=== PATIENT | male | born 1955 | race African-American/Black ===

== ENCOUNTER 2018-05-10 13:31 | Inpatient (IN) ==
[2018-05-10] MEDS ORDERED: Morphine Inj 4 MG/ML Vial IV.PUSH ONE ×2 (16:21→17:09)
[2018-05-10 16:56] LABS: Baso % (Auto) 0.5 % (0.0-2.0); Eos % (Auto) 0.2 % (0.0-4.0); Hematocrit 35.6 % (39.0-51.0); Hemoglobin 11.9 gm/dL (13.0-17.0); Lymph # (Auto) 2.3 th/mm3 (1.0-4.8); Lymph % (Auto) 23.2 % (9.0-44.0); Mean Corpuscular HGB Conc 33.3 % (32.0-36.0); Mean Corpuscular Hemoglobin 26.5 pg (27.0-34.0); Mean Corpuscular Volume 79.4 fL (80.0-100.0); Mean Platelet Volume 7.3 fL (7.0-11.0); Mono # (Auto) 0.4 th/mm3 (0.0-0.9); Mono % (Auto) 4.6 % (0.0-8.0); Neut % (Auto) 71.5 % (16.0-70.0); Platelet Count 365 th/mm3 (150-450); Red Blood Count 4.49 mil/mm3 (4.50-5.90); Red Cell Distribution Width 21.9 % (11.6-17.2); White Blood Count 9.8 th/mm3 (4.0-11.0)
--- NOTE | 2018-05-10 17:04 | ED ---
HPI General Chief Complaint: Abdominal Pain Stated Complaint: Abd/Chest Pain Complaint Time Seen by Provider: 05/10/18 15:48 Source: patient Mode of arrival: ambulatory Limitations: no limitations History of Present Illness HPI narrative: Patient is a 62-year-old male, past medical history significant for previous pancreatitis, who presents with complaint of abdominal pain that began yesterday and felt like a bloating sensation. He states that the bloating sensation was diffuse but the pain has worsened and is worse in the right upper quadrant. He is still having persistent abdominal discomfort diffusely as well. He has had some nausea but no vomiting. No constipation. No fever nor chills. He denies chest pain or shortness of breath. MD complaint: Reports abdominal pain Onset (ago): day(s) Pain Consistency: constant Location: Reports diffuse Severity: moderate Quality: Reports fullness Migration to: Reports no migration Relieving factors: nothing Exacerbating factors: movement Associated symptoms: Reports nausea Related Data Home Medications Medication Instructions Recorded Confirmed Novolog Flexpen U-100 Insulin 05/10/18 05/10/18 amlodipine 10 mg PO DAILY 05/10/18 05/10/18 cyclobenzaprine 10 mg PO DAILY 05/10/18 05/10/18 insulin glargine [Basaglar KwikPen 20 unit SUBCUT DAILY 05/10/18 05/10/18 U-100 Insulin] slezka-syudjiig-yofanoa [Creon] 1 cap PO TID 05/10/18 05/10/18 magnesium oxide 400 mg PO DAILY 05/10/18 05/10/18 metformin 500 mg PO BID 05/10/18 05/10/18 multivitamin 1 tab PO DAILY 05/10/18 05/10/18 propranolol 40 mg PO BID 05/10/18 05/10/18 sucralfate 1 g PO BID 05/10/18 05/10/18 vitamin B complex 1 tab PO DAILY 05/10/18 05/10/18 Allergies Allergy/AdvReac Type Severity Reaction Status Date / Time No Known Allergies Allergy Verified 05/10/18 15:50 Review of Systems ROS: all other systems reviewed are negative [facility] Medical History Medical History Diabetes (Acute) Hypertension (Acute) Pancreatitis (Acute) Surgical History Surgical History No history of previous surgery (Acute) Family History Family History Father HTN (hypertension) Mother HTN (hypertension) Social History Social History Substance History: No History of Abuse Second Hand Smoke Exposure: No Smoking Status: Heavy tobacco smoker Tobacco Type: Cigarettes How Often Do You Have a Drink Containing Alcohol: Never Recent Travel in [facility] within the Last 8 Weeks: No Recent Out of Country Travel within the Last 8 Weeks: No Immunization History Tetanus Immunization: Unsure Exam Narrative Exam Narrative: GENERAL: Well-appearing male in no acute distress but lying flat on the bed SKIN: Focused skin assessment warm/dry. No rashes. HEAD: Atraumatic. Normocephalic. EYES: Pupils equal and round. No scleral icterus. No injection or drainage. ENT: No nasal bleeding or discharge. Mucous membranes pink and moist. NECK: Trachea midline. No JVD. CARDIOVASCULAR: Regular rate and rhythm. No murmur appreciated. Intact and equal peripheral pulses. RESPIRATORY: No accessory muscle use. Clear to auscultation. Breath sounds equal bilaterally. GASTROINTESTINAL: Abdomen soft, tenderness present throughout but worse in the right upper quadrant. Positive Quintero sign. Hepatic and splenic margins not palpable. MUSCULOSKELETAL: No obvious deformities. No clubbing. No cyanosis. No edema. NEUROLOGICAL: Awake and alert. No obvious cranial nerve deficits. Motor grossly within normal limits. Normal speech. PSYCHIATRIC: Appropriate mood and affect; insight and judgment normal. Course Initial Documented Vital Signs Temperature 97.7 F 05/10/18 13:45 Pulse Rate 90 05/10/18 13:45 Respiratory Rate 17 05/10/18 13:45 Blood Pressure 135/78 05/10/18 13:45 Pulse Oximetry 98 05/10/18 13:45 Last Documented Vital Signs Temperature 98.7 F 05/11/18 04:00 Pulse Rate 88 05/11/18 04:00 Respiratory Rate 19 05/11/18 04:00 Blood Pressure 131/80 05/11/18 04:00 Pulse Oximetry 93 L 05/11/18 04:00 Medical Decision Making [facility] Narrative Medical decision making narrative: Patient is a 62-year-old male who presents with complaint of abdominal pain. He has tenderness diffusely but is worse in the right upper quadrant with a positive Quintero sign. Labs, ultrasound, CT pending at time of checkout. 1740 3 PM. Patient was seen by ED physician and signed out to me. Normal saline solution 125 cc an hour. Morphine IV was given to the patient. Zofran was given to the patient. Protonix 40 mg IV. Medical Screen Exam Complete: Yes Emergency Medical Condition: Yes Differential Diagnosis Differential Diagnosis: Differential diagnosis includes but is not limited to cholecystitis, volvulus, small bowel obstruction. Medical Records Medical records reviewed: Yes I reviewed the patient's medical records. Lab Data Lab results reviewed: Yes I reviewed the patient's lab results. Result diagrams: 05/10/18 16:35 05/10/18 16:35 Lab Results 05/10/18 05/10/18 05/10/18 Range/Units 16:35 16:35 17:10 WBC 9.8 (4.0-11.0) th/mm3 RBC 4.49 L (4.50-5.90) mil/mm3 Hgb 11.9 L (13.0-17.0) gm/dL Hct 35.6 L (39.0-51.0) % MCV 79.4 L (80.0-100.0) fL MCH 26.5 L (27.0-34.0) pg MCHC 33.3 (32.0-36.0) % RDW 21.9 H (11.6-17.2) % Plt Count 365 (150-450) th/mm3 MPV 7.3 (7.0-11.0) fL Neut % (Auto) 71.5 H (16.0-70.0) % Lymph % (Auto) 23.2 (9.0-44.0) % [place] % (Auto) 4.6 (0.0-8.0) % Eos % (Auto) 0.2 (0.0-4.0) % Baso % (Auto) 0.5 (0.0-2.0) % Neut # (Auto) 7.0 (1.8-7.7) th/mm3 Lymph # (Auto) 2.3 (1.0-4.8) th/mm3 [place] # (Auto) 0.4 (0.0-0.9) th/mm3 Eos # (Auto) 0.0 (0.0-0.4) th/mm3 Baso # (Auto) 0.0 (0.0-0.2) th/mm3 WBC Differential . Differential Comment Auto diff final Sodium 136 (136-145) meq/L Potassium 5.8 H (3.5-5.1) meq/L Chloride 104 (98-107) meq/L Carbon Dioxide 25.3 (21.0-32.0) meq/L Anion Gap 7 (5-15) meq/L BUN 10 (7-18) mg/dL Creatinine 0.81 (0.60-1.30) mg/dL Estimated GFR Greater than 89 (>89) mL/min Random Glucose 173 H (74-106) mg/dL Calcium 9.0 (8.5-10.1) mg/dL Magnesium 1.8 (1.5-2.5) mg/dL Total Bilirubin 0.5 (0.2-1.0) mg/dL AST 53 H (15-37) U/L ALT 37 (12-78) U/L Alkaline Phosphatase 91 (45-117) U/L Total Protein 8.3 H (6.4-8.2) g/dL Albumin 3.4 (3.4-5.0) g/dL Lipase 2786 H (73-393) U/L Urine Color Yellow (Yellw/Straw) Urine Clarity Hazy H (Clear) Urine pH 5.0 (5.0-8.5) Ur Specific [place] 1.031 (1.002-1.035) Urine Protein 100 H (Neg-Trace) mg/dL Urine Glucose (UA) Negative (Negative) mg/dL Urine Ketones Negative (Negative) mg/dL Urine Occult Blood Negative (Negative) Urine Nitrate Negative (Negative) Urine Bilirubin Negative (Negative) Urine Urobilinogen Less than 2 (Less than 2) mg/dL Ur Leukocyte Esterase Small H (Negative) Urine RBC 1 (0-3) /hpf Urine WBC 37 H (0-5) /hpf Ur Squamous Epith Cells 1 (0-5) /hpf Urine Bacteria Few H (None) /hpf Hyaline Casts 3 (0-3) /lpf Urine Mucus Few H (Occasional) /lpf Micro UA Comment Culture indicated Ur Microscopic Review Not Reportable Urine Culture Comments Culture indicated Imaging Data Attestation: I personally reviewed and interpreted this imaging study as follows : Radiologist's impression: Abdomen/Pelvis CT 05/10/18 16:21 CONCLUSION: 1. Findings most consistent with acute pancreatitis with secondary involvement of the gastric antrum. 2. 2.8 cm pseudocyst involving the pancreatic head is smaller from the prior study. 3. Changes involving the pancreas consistent with chronic pancreatitis. 4. Mildly distended thick walled gallbladder with a small amount of pericholecystic fluid. No calcified gallstones observed. This may simply be venous congestion secondary to the patient's underlying hepatic disease. I cannot completely exclude acute cholecystitis. If there is strong clinical concern for this consider ultrasound. Gallbladder Ultrasound 05/10/18 16:21 CONCLUSION: 1. Thickened edematous gallbladder wall with pericholecystic fluid but no evidence of cholelithiasis. This is most characteristic of acalculus cholecystitis. 2. No evidence of hepatic biliary tract disease. 3. Simple right renal cyst. Discharge Plan Discharge Disposition Patient Disposition: ED Admit(ED Internal Use Only) Discharge Order Discharge Orders: ED Use Only Admit Order (Routine); Ordered 05/10/18 Ordered By: Guillermo Allison Discharge Details Diagnosis: Acute acalculous cholecystitis, Acute pancreatitis, Acute UTI Physicians Team ED Provider: Bryanna Ambriz Primary Care Provider: Primary Care Taryn,Anjelica Attending Provider: Trever Koehler Other Providers: Russell Slater ED Status: Left Department Discharge Information Discharge Date/Time: 05/10/18 23:12
--- NOTE | 2018-05-10 17:16 | US ---
EXAM DATE: 05/10/2018 5:11 PM EST AGE/SEX: 62 years / Male INDICATIONS: Right upper quadrant pain. CLINICAL DATA: This is the patient's initial encounter. Patient reports that signs and symptoms have been present for 1 week and indicates a pain score of 7/10. MEDICAL/SURGICAL HISTORY: Diabetes. Hypertension. Pancreatitis. None. COMPARISON: [facility] [place], [place] ABDOMEN - COMPLETE, 06/25/2011. . MEASUREMENTS: Liver:__ 15.5 cm. Common Bile Duct:__ 7mm. FINDINGS: Liver: Normal echogenicity without focal lesion or ductal dilatation. Portal Vein: Hepatopedal flow seen in portal vein. Common Duct: No intraluminal mass or stone visualized. Gallbladder: The gallbladder wall is thickened and edematous in appearance. There is pericholecystic fluid. No discrete stones are identified. Pancreas: Not well visualized. Right Kidney: 2.2 cm cyst is identified in the midpole of the right kidney. Other: None. CONCLUSION: 1. Thickened edematous gallbladder wall with pericholecystic fluid but no evidence of cholelithiasis . This is most characteristic of acalculus cholecystitis. 2. No evidence of hepatic biliary tract disease. 3. Simple right renal cyst. Electronically signed by: Jovani Glez MD Board Certified Radiologist 05/10/2018 5:15 PM EST
[2018-05-10 17:22] LABS: Alkaline Phosphatase 91 U/L (45-117); Lipase 2786 U/L (73-393); Total Protein 8.3 g/dL (6.4-8.2)
[2018-05-10] MEDS ORDERED: Pantoprazole Inj 40 MG Vial IV.PUSH ONE (17:44)
[2018-05-10] MEDS ORDERED: Sod Chloride 0.9% Inj 1,000 ML IV.CONT SCH ×2 (17:45→19:30)
[2018-05-10 17:52] LABS: Bacteria,Urine Few /hpf; Bilirubin,Urine Negative (Negative); Clarity,Urine Hazy (Clear); Color,Urine Yellow (Yellw/Straw); Glucose,Urine (UA) Negative (Negative); Hyaline Casts,Urine 3 /lpf (0-3); Leukocyte Esterase,Urine Small (Negative); Mucus,Urine Few /lpf (Occasional); Nitrite,Urine Negative (Negative); Specific Gravity,Urine 1.031 (1.002-1.035); Squamous Epithelial Cell,Urine 1 /hpf (0-5)
[2018-05-10] MEDS ORDERED: Piperacil/Tazo 3.375 GM Premix 3.375 GM/50 ML PIGGYBACK IV.SIG ONE (17:53)
[2018-05-10 17:57] LABS: Alanine Aminotransferase 37 U/L (12-78); Albumin 3.4 g/dL (3.4-5.0); Anion Gap 7 meq/L (5-15); Blood Urea Nitrogen 10 mg/dL (7-18); Carbon Dioxide 25.3 meq/L (21.0-32.0); Chloride 104 meq/L (98-107); Glomerular Filtration Rate Greater Than 89 mL/min (>89); Glucose,Random 173 mg/dL (74-106); Magnesium 1.8 mg/dL (1.5-2.5); Sodium 136 meq/L (136-145)
[2018-05-10 17:58] LABS: Potassium 5.8 meq/L (3.5-5.1)
[2018-05-10 17:59] LABS: Aspartate Aminotransferase 53 U/L (15-37)
--- NOTE | 2018-05-10 18:49 | CT ---
EXAM DATE: 05/10/2018 6:31 PM EST AGE/SEX: 62 years / Male INDICATIONS: Lower abdominal pain and right sided abdominal pain. CLINICAL DATA: This is the patient's initial encounter. Patient reports that signs and symptoms have been present for 1 day and indicates a pain score of 10/10. MEDICAL/SURGICAL HISTORY: Diabetes. Pancreatitis. Hypertension. None. ORAL CONTRAST: No oral contrast ingested. RADIATION DOSE: 6.64 CTDI (mGy) [place] [facility] [place] 09/05/2015. . TECHNIQUE: Multiple contiguous axial images were obtained through the abdomen and pelvis following b olus infusion of 75 ml Omnipaque 350 (iohexol) nonionic water-soluble contrast as a single exam dos e. No oral contrast ingested. Using automated exposure control and adjustment of the mA and/or kV ac cording to patient size, radiation dose was kept as low as reasonably achievable to obtain optimal di agnostic quality images. DICOM format image data is available electronically for review and comparis on. FINDINGS: Lower Lungs: The visualized lower lungs are clear. Liver: The liver has a homogeneous density without space-occupying lesion. There is no dilation of th e biliary tree. 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 The gallbladder is mildly diste nded without calcified stones. The wall is thickened and there is a small amount of pericholecystic f luid.. Spleen: Homogeneous density without enlargement. Pancreas: A markedly abnormal pancreas. There is a 2.8 cm pseudocyst adjacent to the pancreatic head which is smaller from the prior examination. Scattered calcifications throughout the pancreas but mo st abundant within the pancreatic head. Diffuse dilatation of the pancreatic duct reaching a maximum diameter of 7 mm which is stable from the prior study. There is the suggestion of inflammatory change within the adjacent fat near the pancreatic head most pronounced anteriorly with secondary edema inv olving the gastric wall most pronounced within the fundal region.. Kidneys: Normal in size and shape. No evidence of mass or hydronephrosis. Adrenal Glands: Unremarkable. Aorta: Diffuse calcified atheromatous plaque without aneurysmal dilation. Bowel/Mesentery: A few scattered colonic diverticuli without acute inflammation. The bowel loops are grossly unremarkable. The cecum and sigmoid colon have a normal configuration. The appendix is jose j l by CT criteria. Abdominal Wall: Intact. Retroperitoneum: No evidence of adenopathy in the retrocrural, para-aortic, or deep pelvic regions. Bladder: Contours are smooth. Reproductive Organs: No abnormal masses or calcifications seen. Inguinal: The inguinal region is unremarkable without evidence of adenopathy. Bony Structures: Unremarkable. CONCLUSION: 1. Findings most consistent with acute pancreatitis with secondary involvement of the gastric antrum . 2. 2.8 cm pseudocyst involving the pancreatic head is smaller from the prior study. 3. Changes involving the pancreas consistent with chronic pancreatitis. 4. Mildly distended thick walled gallbladder with a small amount of pericholecystic fluid. No calcif ied gallstones observed. This may simply be venous congestion secondary to the patient's underlying h epatic disease. I cannot completely exclude acute cholecystitis. If there is strong clinical concern for this consider ultrasound. Electronically signed by: Abilio Sena MD Board Certified Radiologist 05/10/2018 6:47 PM EST
[2018-05-10] MEDS: HYDROmorphone PF Inj 0.5 MG/0.5 ML Syringe IV.PUSH PRN (21:30)
[2018-05-10] MEDS ORDERED: Sodium Polystyrene Sulfonate/Sorbitol Liq 15 GM/60 ML UDC PO ONE (23:01)
[2018-05-10] MEDS: Piperacil/Tazo 4.5 GM Premix 4.5 GM/100 ML BAG IV.SIG SCH (23:20)
[2018-05-10] MEDS: Sod Chloride 0.9% Inj 1,000 ML IV.CONT SCH (23:22)
[2018-05-11] MEDS: HYDROmorphone PF Inj 0.5 MG/0.5 ML Syringe IV.PUSH PRN ×5 (01:39→20:00)
--- NOTE | 2018-05-11 03:09 | P.HPIM ---
History of Present Illness Service: [facility] Primary Care Physician: No Primary Care Physician Chief Complaint: Abdominal pain History of Present Illness: 62-year-old male with a history of pancreatitis, high blood pressure, diabetes, GERD presented to the ED with complaints of abdominal pain that started yesterday. Patient states he felt very bloated and over the course of the day the pain became worse and radiated to his right upper quadrant. He states the pain originally was a 7/10, constant, sharp stabbing, worse with movement, with associated nausea and bloating. Upon examination patient states his abdominal pain is significantly better with the medications and fluids. He denies any chest pain, shortness of breath, fever or chills. Inpatient Certification Inpatient Certification: I certify that the inpatient services were ordered in accordance with Medicare regulations governing the order. This includes certification that hospital inpatient services are reasonable and necessary and in the case of services not specified as inpatient-only under 42 CFR 419.22(n), that they are appropriately provided as inpatient services in accordance to with the 2-midnight benchmark under 43 CFR 412.3(e) Estimated Total Length of Stay (Days): 3 Plans for Post Hospital Care: Home Review of Systems Review of Systems: all other systems reviewed are negative [facility] Medical History Medical History Diabetes (Acute) Hypertension (Acute) Pancreatitis (Acute) Surgical History Surgical History No history of previous surgery (Acute) Family History Family History Father HTN (hypertension) Mother HTN (hypertension) Social History Social History Substance History: No History of Abuse Second Hand Smoke Exposure: No Smoking Status: Heavy tobacco smoker Tobacco Type: Cigarettes How Often Do You Have a Drink Containing Alcohol: Never Recent Travel in [place] within the Last 8 Weeks: No Recent Out of Country Travel within the Last 8 Weeks: No Immunization History Tetanus Immunization: Never Vaccinated Hx Influenza Vaccine This Season: No Medications and Allergies Allergies Allergy/AdvReac Type Severity Reaction Status Date / Time No Known Allergies Allergy Verified 05/10/18 15:50 Home Medications Medication Instructions Recorded Confirmed Type Novolog Flexpen U-100 Insulin 05/10/18 05/10/18 History amlodipine 10 mg PO DAILY 05/10/18 05/10/18 History cyclobenzaprine 10 mg PO DAILY 05/10/18 05/10/18 History insulin glargine [Basaglar KwikPen 20 unit SUBCUT DAILY 05/10/18 05/10/18 History U-100 Insulin] iiwuil-hzclllwk-bcnlybr [Creon] 1 cap PO TID 05/10/18 05/10/18 History magnesium oxide 400 mg PO DAILY 05/10/18 05/10/18 History metformin 500 mg PO BID 05/10/18 05/10/18 History multivitamin 1 tab PO DAILY 05/10/18 05/10/18 History propranolol 40 mg PO BID 05/10/18 05/10/18 History sucralfate 1 g PO BID 05/10/18 05/10/18 History vitamin B complex 1 tab PO DAILY 05/10/18 05/10/18 History Active Medications: Active Medications Hydromorphone HCl (Dilaudid Pf Inj) 0.5 mg IV.PUSH Q4H PRN PRN Reason: Acute Pain Last Admin: 05/11/18 01:39 Dose: 0.5 mg Piperacillin/Tazobactam/Dextrose (Zosyn 4.5 Gm Premix) 4.5 gm in 100 mls @ 200 mls/hr IV.SIG Q6H [facility] Last Infusion: 05/11/18 00:13 Dose: Infused Sodium Chloride (Ns Inj) 1,000 mls @ 125 mls/hr IV.CONT .Q8H [facility] Last Admin: 05/10/18 23:22 Dose: 125 mls/hr Ondansetron HCl (Zofran Inj) 4 mg IV.PUSH Q6H PRN PRN Reason: NAUSEA OR VOMITING Sodium Chloride (Ns Flush) 2 ml IV.FLUSH PRN PRN PRN Reason: FLUSH AFTER USING IV ACCESS Last Admin: 05/10/18 16:49 Dose: 2 ml Sodium Chloride (Ns Flush) 2 ml IV.FLUSH BID [facility] Last Admin: 05/10/18 22:31 Dose: Not Given Sodium Chloride (Ns Flush) 2 ml IV.FLUSH PRN PRN PRN Reason: FLUSH AFTER USING IV ACCESS Physical Exam Vital signs: Last Vital Signs Temp 96.4 F L 05/11/18 00:00 Pulse 77 05/11/18 00:00 Resp 18 05/11/18 00:00 BP 128/75 05/11/18 00:00 Pulse Ox 95 05/11/18 00:00 Intake & Output 05/08/18 05/09/18 05/10/18 05/11/18 06:59 06:59 06:59 06:59 Intake Total 200 / 200 Balance 200 / 200 Weight 56.699 kg Narrative: GENERAL: Well-nourished patient in no acute distress, denies pain SKIN: Warm and dry. No open lesions or abrasions EYES: No scleral icterus. No injection or drainage. NECK: Supple, trachea midline. No JVD or lymphadenopathy. CARDIOVASCULAR: Regular rate and rhythm without murmurs, gallops, or rubs. RESPIRATORY: Breath sounds equal bilaterally. No accessory muscle use. GASTROINTESTINAL: Abdomen soft, mild RUQ tenderness, nondistended. MUSCULOSKELETAL: No cyanosis, or edema. Results Labs CBC & Chem 7: 05/10/18 16:35 05/10/18 16:35 Imaging Impressions Abdomen/Pelvis CT 05/10/18 16:21 CONCLUSION: 1. Findings most consistent with acute pancreatitis with secondary involvement of the gastric antrum. 2. 2.8 cm pseudocyst involving the pancreatic head is smaller from the prior study. 3. Changes involving the pancreas consistent with chronic pancreatitis. 4. Mildly distended thick walled gallbladder with a small amount of pericholecystic fluid. No calcified gallstones observed. This may simply be venous congestion secondary to the patient's underlying hepatic disease. I cannot completely exclude acute cholecystitis. If there is strong clinical concern for this consider ultrasound. Gallbladder Ultrasound 05/10/18 16:21 CONCLUSION: 1. Thickened edematous gallbladder wall with pericholecystic fluid but no evidence of cholelithiasis. This is most characteristic of acalculus cholecystitis. 2. No evidence of hepatic biliary tract disease. 3. Simple right renal cyst. Caprini VTE Risk Assessment Caprini VTE Risk Assessment: Moderate/High Risk (score >= 2) Caprini Risk Assessment Model: Point Value = 1 Point Value = 2 Point Value = 3 Point Value = 5 Age 41-60 Minor surgery BMI > 25 kg/m2 Swollen legs Varicose veins or History of unexplained or recurrent spontaneous Oral contraceptives or hormone replacement Sepsis (< 1 month) Serious lung disease, including pneumonia (< 1 month) Abnormal pulmonary function Acute myocardial infarction Congestive heart failure (< 1 month) History of inflammatory bowel disease Medical patient at bed rest Age 61-74 Arthroscopic surgery Major open surgery (> 45 min) Laparoscopic surgery (> 45 min) Malignancy Confined to bed (> 72 hours) Immobilizing plaster cast Central venous access Age >= 75 History of VTE Family history of VTE Factor V Leiden Prothrombin [id number] Lupus anticoagulant Anticardiolipin antibodies Elevated serum homocysteine Heparin-induced thrombocytopenia Other congenital or acquired thrombophilia Stroke (< 1 month) Elective arthroplasty Hip, pelvis, or leg fracture Acute spinal cord injury (< 1 month) Prophylaxis Regimen: Total Risk Factor Score Risk Level Prophylaxis Regimen 0-1 Low Early ambulation 2 Moderate Order ONE of the following: *Sequential Compression Device (SCD) *Heparin 5000 units SQ BID 3-4 Higher Order ONE of the following medications: *Heparin 5000 units SQ TID *Enoxaparin/Lovenox 40 mg SQ daily (WT < 150 kg, CrCl > 30 mL/min) *Enoxaparin/Lovenox 30 mg SQ daily (WT < 150 kg, CrCl > 10-29 mL/min) *Enoxaparin/Lovenox 30 mg SQ BID (WT < 150 kg, CrCl > 30 mL/min) AND/OR *Sequential Compression Device (SCD) 5 or more Highest Order ONE of the following medications: *Heparin 5000 units SQ TID (Preferred with Epidurals) *Enoxaparin/Lovenox 40 mg SQ daily (WT < 150 kg, CrCl > 30 mL/min) *Enoxaparin/Lovenox 30 mg SQ daily (WT < 150 kg, CrCl > 10-29 mL/min) *Enoxaparin/Lovenox 30 mg SQ BID (WT < 150 kg, CrCl > 30 mL/min) AND *Sequential Compression Device (SCD) Assessment and Plan Plan 62-year-old male with a history of pancreatitis, high blood pressure, diabetes, GERD presented to the ED with complaints of abdominal pain that started yesterday. Pancreatitis, lipase [address] shows acute pancreatitis with a 2.8 cm pseudocyst involving the pancreatic head -IVF, npo -MRCP ordered -We will consult GI if needed Cholecystitis Gallbladder ultrasound shows a thickened edematous gallbladder with darby- cholecystic fluid -Consult general surgery for recommendations -N.p.o. -Pain management with IV Dilaudid -IV antibiotics Zosyn UTI Abnormal UA shows small leukocyte esterase with elevated WBC, + protein -Culture indicated -Continue IV antibiotics as above Hypertension, chronic -Resume home medication, monitor vitals Diabetes, chronic -Accu-Cheks with sliding scale insulin DVT prophylaxis: SCDs H&P: Quality VTE Deep Vein Thrombosis/Pulmonary Embolism Present on Admission: No
[2018-05-11] MEDS: Piperacil/Tazo 4.5 GM Premix 4.5 GM/100 ML BAG IV.SIG SCH ×3 (04:23→18:42)
[2018-05-11] MEDS: Sod Chloride 0.9% Inj 1,000 ML IV.CONT SCH ×4 (05:40→22:04)
[2018-05-11 07:21] LABS: Baso % (Auto) 0.7 % (0.0-2.0); Eos # (Auto) 0.1 th/mm3 (0.0-0.4); Eos % (Auto) 1.6 % (0.0-4.0); Hematocrit 29.2 % (39.0-51.0); Hemoglobin 9.7 gm/dL (13.0-17.0); Lymph # (Auto) 1.3 th/mm3 (1.0-4.8); Mean Corpuscular HGB Conc 33.2 % (32.0-36.0); Mean Corpuscular Hemoglobin 26.1 pg (27.0-34.0); Mean Corpuscular Volume 78.6 fL (80.0-100.0); Mean Platelet Volume 6.7 fL (7.0-11.0); Mono # (Auto) 0.6 th/mm3 (0.0-0.9); Mono % (Auto) 8.7 % (0.0-8.0); Neut # (Auto) 4.5 th/mm3 (1.8-7.7); Platelet Count 246 th/mm3 (150-450); Red Blood Count 3.72 mil/mm3 (4.50-5.90); Red Cell Distribution Width 21.3 % (11.6-17.2); White Blood Count 6.6 th/mm3 (4.0-11.0)
[2018-05-11 08:00] LABS: Alanine Aminotransferase 21 U/L (12-78); Albumin 2.6 g/dL (3.4-5.0); Alkaline Phosphatase 76 U/L (45-117); Anion Gap 10 meq/L (5-15); Aspartate Aminotransferase 10 U/L (15-37); Blood Urea Nitrogen 6 mg/dL (7-18); Calcium 8.2 mg/dL (8.5-10.1); Carbon Dioxide 23.4 meq/L (21.0-32.0); Chloride 108 meq/L (98-107); Glomerular Filtration Rate Greater Than 89 mL/min (>89); Glucose,Random 111 mg/dL (74-106); Lipase 1578 U/L (73-393); Potassium 3.2 meq/L (3.5-5.1); Sodium 141 meq/L (136-145); Total Protein 6.4 g/dL (6.4-8.2)
[2018-05-11] MEDS ORDERED: Gadobutrol PF 7.5 MMOL/7.5 ML Vial (for RAD) IV.SIG ONE (10:00)
--- NOTE | 2018-05-11 10:01 | MR ---
EXAM DATE: 05/11/2018 9:44 AM EST AGE/SEX: 62 years / Male INDICATIONS: Pancreatitis. CLINICAL DATA: This is the patient's initial encounter. Patient reports that signs and symptoms have been present for 4 - 6 days and indicates a pain score of 3/10. MEDICAL/SURGICAL HISTORY: Hypertension. Diabetes mellitus type II. None. COMPARISON: No prior exams available for comparison. TECHNIQUE: Multisequence, multiplanar MRI examination was performed without contrast and after the in travenous administration of 6 ml Gadavist (gadobutrol) contrast as a single exam dose. FINDINGS: Gallbladder is prominent without gallstones. There is minimal fluid around the gallbladder with gallb ladder wall thickening. Common duct is normal in size there is edema around the pancreas with dilatation of the pancreatic du ct with beading and irregularity suggesting previous bouts of pancreatitis. There is pseudocyst with debris in the head of the pancreas. The pseudocyst does encroach minimal degree on the distal common duct. Moderate induration is present around the head of the pancreas. This induration extends into th e antrum of the stomach with marked thickening of the gastric antrum. There is no intrahepatic biliary duct dilatation. Trace ascites is evident. Small bilateral renal cysts are evident. CONCLUSION: 1. Findings consistent with acute pancreatitis with induration around the head of the pancreas invol ving pancreas and antrum. 4 cm pseudocyst is present has the pancreas. 2. Distended gallbladder with gallbladder wall thickening. No definite stones. 3. Normal common duct 4. No intrahepatic biliary duct dilatation. Electronically signed by: Trever Bridges MD Board Certified Radiologist 05/11/2018 10:00 AM EST
[2018-05-11] MEDS: Sucralfate 1 GM Tablet PO SCH ×2 (11:32→22:00)
[2018-05-11] MEDS: Magnesium Oxide 400 MG Tablet PO SCH (11:32)
[2018-05-11] MEDS: Propranolol 40 MG Tablet PO SCH ×2 (11:33→22:00)
[2018-05-11 11:46] LABS: Chol/HDL Ratio 1.95 Ratio; HDL Cholesterol 63.8 mg/dL (40.0-60.0)
[2018-05-11] MEDS: Potassium Chlor 20 mEq Premix 20 MEQ/100 ML PIGGYBACK IV.SIG SCH ×2 (11:53→13:46)
--- NOTE | 2018-05-11 12:08 | P.DIET ---
Nutritional Evaluation Type of nutrition evaluation: initial Nutrition screening: Weight Loss > 10 lbs Objective - Diagnosis Acute cholecystitis, Acute pancreatitis - Objective Body Mass Index: 19 [place] body weight: 61 kg Body Weight Used for Calculations: Actual (adm weight 57kg) Energy Needs - Lower Range (kCal/kg): 30 Energy Needs - Upper Range (kCal/kg): 35 Lower Limit kCal/kg (kCals): 1,710 Upper Limit kCal/kg (kCals): 1,995 Lower Limit Protein Factor (Grams per Kg): 1 Upper Limit Protein Factor (Grams per Kg): 1.2 Lower Protein Needs (Protein): 57 Upper Protein Needs (Protein): 68 Dietitian Reviewed in Medical Record: Curent medications, Intake & Output, Labs , Medical history Diet Order: NPO Objective Comments: PMH; pancreatitis, HTN, DM, GERD Labs; K 3.2, random glucose 173, 111, Lipase 1578 Medications; Theragran, creon Assessment Assessment: Weight loss screen; Pt presents to ED with complaints of abdominal pain and found to have acute pancreatitis/ acute cholecystitis. Pt is currently at nutritional risk related to dx and recent weight loss. At this time pt is NPO. Will continue to monitor for return of diet order and assess PO intake and need for supplementation. Dietitian following. Recommendations: 1. Monitor for return of diet order 2. Assess PO intake and need for supplement as appropriate
--- NOTE | 2018-05-11 12:42 | P.PNIM ---
Subjective Interval history: Chief Complaint: Abdominal pain History of Present Illness: 62-year-old male with a history of pancreatitis, high blood pressure, diabetes, GERD presented to the ED with complaints of abdominal pain that started yesterday. Patient states he felt very bloated and over the course of the day the pain became worse and radiated to his right upper quadrant. He states the pain originally was a 7/10, constant, sharp stabbing, worse with movement, with associated nausea and bloating. Upon examination patient states his abdominal pain is significantly better with the medications and fluids. He denies any chest pain, shortness of breath, fever or chills. 1-4 patient states that abdominal pain is less in the midepigastric region and more so in the right upper quadrant Will consult surgery Patient states that he has a history of pancreatic pseudocyst and is chronically on Creon Has a history of chronic pancreatitis Patient is visiting from [facility] We will get a.m. labs we will check a fasting lipid profile as well as amylase and lipase Has had MRCP Physical Exam Vital signs: Vital Signs 05/10/18 13:45 05/10/18 16:00 05/10/18 16:10 Temperature 97.7 F Pulse Rate 90 83 Respiratory Rate 17 Blood Pressure 135/78 Pulse Oximetry 98 98 05/10/18 16:38 05/10/18 17:19 05/10/18 17:22 Temperature Pulse Rate 97 H Respiratory Rate 18 18 Blood Pressure Pulse Oximetry 05/10/18 17:23 05/10/18 18:43 05/10/18 19:10 Temperature Pulse Rate 97 H 94 H 88 Respiratory Rate 18 16 16 Blood Pressure 161/87 H 152/80 H 134/83 Pulse Oximetry 97 97 97 05/10/18 22:31 05/10/18 23:21 05/11/18 00:00 Temperature 98.8 F 96.4 F L Pulse Rate 78 77 Respiratory Rate 16 18 18 Blood Pressure 141/83 H 128/75 Pulse Oximetry 95 95 05/11/18 04:00 05/11/18 08:00 05/11/18 12:00 Temperature 98.7 F 98.3 F 98.4 F Pulse Rate 88 84 76 Respiratory Rate 19 16 18 Blood Pressure 131/80 129/73 138/75 Pulse Oximetry 93 L 93 L 96 Intake & Output 05/10/18 05/11/1805/11/19 18:59 06:59 18:59 Intake Total 1974 100 / 100 Output Total 550 / 550 Balance 1425 / 1425 100 / 100 Weight 56.699 kg 57.1 kg Intake: IV 1974 100 / 100 NS Inj 1,000 ML @ 125 mls/hr IV 1675 / 1675 .CONT .Q8H [facility] Rx#:[id number] Zosyn 3.375 GM Premix 3.375 gm 100 / 100 In 50 ml @ 100 mls/hr IV.SIG ONCE ONE Rx#:[id number] Zosyn 4.5 GM Premix 4.5 gm In 200 / 200 100 / 100 100 ml @ 200 mls/hr IV.SIG Q6H [facility] Rx#:[id number] Oral 0 / 0 Output: Urine 550 / 550 Other: Date of Last Bowel Movement 05/10/18 Weight On Admission 56.699 kg Narrative: GENERAL: Well-nourished patient in no acute distress, denies pain SKIN: Warm and dry. No open lesions or abrasions EYES: No scleral icterus. No injection or drainage. PERRLA EOMI Tongue is midline oromucosa is moist oropharynx is clear NECK: Supple, trachea midline. No JVD or lymphadenopathy. CARDIOVASCULAR: Regular rate and rhythm without murmurs, gallops, or rubs. S1- S2 no S3 or S4 RESPIRATORY: Breath sounds equal bilaterally. No accessory muscle use. GASTROINTESTINAL: Abdomen soft, mild RUQ tenderness, nondistended. MUSCULOSKELETAL: No cyanosis, or edema. Motor strength is 5 out of 5 in upper extremity and lower extremity bilaterally Insight and judgment is good Mood and behavior is appropriate Results - Labs CBC & Chem 7: 05/11/18 06:31 05/11/18 06:31 Laboratory Results - last 24 hr 05/10/18 05/10/18 05/10/18 16:35 16:35 17:10 WBC 9.8 RBC 4.49 L Hgb 11.9 L Hct 35.6 L MCV 79.4 L MCH 26.5 L MCHC 33.3 RDW 21.9 H Plt Count 365 MPV 7.3 Neut % (Auto) 71.5 H Lymph % (Auto) 23.2 [place] % (Auto) 4.6 Eos % (Auto) 0.2 Baso % (Auto) 0.5 Neut # (Auto) 7.0 Lymph # (Auto) 2.3 [place] # (Auto) 0.4 Eos # (Auto) 0.0 Baso # (Auto) 0.0 WBC Differential . Differential Comment Auto diff final Sodium 136 Potassium 5.8 H Chloride 104 Carbon Dioxide 25.3 Anion Gap 7 BUN 10 Creatinine 0.81 Estimated GFR Greater than 89 Random Glucose 173 H Calcium 9.0 Magnesium 1.8 Total Bilirubin 0.5 AST 53 H ALT 37 Alkaline Phosphatase 91 Total Protein 8.3 H Albumin 3.4 Triglycerides Cholesterol LDL Cholesterol, Calc HDL Cholesterol Cholesterol/HDL Ratio Lipase 2786 H Urine Color Yellow Urine Clarity Hazy H Urine pH 5.0 Ur Specific [place] 1.031 Urine Protein 100 H Urine Glucose (UA) Negative Urine Ketones Negative Urine Occult Blood Negative Urine Nitrate Negative Urine Bilirubin Negative Urine Urobilinogen Less than 2 Ur Leukocyte Esterase Small H Urine RBC 1 Urine WBC 37 H Ur Squamous Epith Cells 1 Urine Bacteria Few H Hyaline Casts 3 Urine Mucus Few H Micro UA Comment Culture indicated Ur Microscopic Review Not Reportable Urine Culture Comments Culture indicated 05/11/18 05/11/18 05/11/18 06:31 06:31 10:37 WBC 6.6 RBC 3.72 L Hgb 9.7 L D Hct 29.2 L MCV 78.6 L MCH 26.1 L MCHC 33.2 RDW 21.3 H Plt Count 246 D MPV 6.7 L Neut % (Auto) 69.0 Lymph % (Auto) 20.0 [place] % (Auto) 8.7 H Eos % (Auto) 1.6 Baso % (Auto) 0.7 Neut # (Auto) 4.5 Lymph # (Auto) 1.3 [place] # (Auto) 0.6 Eos # (Auto) 0.1 Baso # (Auto) 0.0 WBC Differential . Differential Comment Auto diff final Sodium 141 Potassium 3.2 L D Chloride 108 H Carbon Dioxide 23.4 Anion Gap 10 BUN 6 L Creatinine 0.57 L Estimated GFR Greater than 89 Random Glucose 111 H Calcium 8.2 L D Magnesium Total Bilirubin 0.4 AST 10 L ALT 21 Alkaline Phosphatase 76 Total Protein 6.4 D Albumin 2.6 L D Triglycerides 81 Cholesterol 125 LDL Cholesterol, Calc 45 HDL Cholesterol 63.8 H Cholesterol/HDL Ratio 1.95 Lipase 1578 H Urine Color Urine Clarity Urine pH Ur Specific [place] Urine Protein Urine Glucose (UA) Urine Ketones Urine Occult Blood Urine Nitrate Urine Bilirubin Urine Urobilinogen Ur Leukocyte Esterase Urine RBC Urine WBC Ur Squamous Epith Cells Urine Bacteria Hyaline Casts Urine Mucus Micro UA Comment Ur Microscopic Review Urine Culture Comments Microbiology 05/10/18 17:10 Clean Catch Urine Urine Culture - Preliminary Immature growth - reincubate - Imaging Impressions Abdomen/Pelvis CT 05/10/18 16:21 CONCLUSION: 1. Findings most consistent with acute pancreatitis with secondary involvement of the gastric antrum. 2. 2.8 cm pseudocyst involving the pancreatic head is smaller from the prior study. 3. Changes involving the pancreas consistent with chronic pancreatitis. 4. Mildly distended thick walled gallbladder with a small amount of pericholecystic fluid. No calcified gallstones observed. This may simply be venous congestion secondary to the patient's underlying hepatic disease. I cannot completely exclude acute cholecystitis. If there is strong clinical concern for this consider ultrasound. Gallbladder Ultrasound 05/10/18 16:21 CONCLUSION: 1. Thickened edematous gallbladder wall with pericholecystic fluid but no evidence of cholelithiasis. This is most characteristic of acalculus cholecystitis. 2. No evidence of hepatic biliary tract disease. 3. Simple right renal cyst. Cholangiopancreatography MRI 05/11/18 00:00 CONCLUSION: 1. Findings consistent with acute pancreatitis with induration around the head of the pancreas involving pancreas and antrum. 4 cm pseudocyst is present has the pancreas. 2. Distended gallbladder with gallbladder wall thickening. No definite stones. 3. Normal common duct 4. No intrahepatic biliary duct dilatation. - Procedures None Assessment and Plan - Plan 62-year-old male with a history of pancreatitis, high blood pressure, diabetes, GERD presented to the ED with complaints of abdominal pain that started yesterday. Pancreatitis, lipase 2786 Patient has chronic pancreatitis with history of a chronic pseudocyst is chronically on Creon Abdominal CT shows acute pancreatitis with a 2.8 cm pseudocyst involving the pancreatic head -IVF, npo -MRCP ordered and has been done and reviewed -We will consult surgery Consult GI if needed Cholecystitis Gallbladder ultrasound shows a thickened edematous gallbladder with darby- cholecystic fluid -Consult general surgery for recommendations -N.p.o. -Pain management with IV Dilaudid -IV antibiotics Zosyn Continue on IV fluids UTI Abnormal UA shows small leukocyte esterase with elevated WBC, + protein -Culture indicated -Continue IV antibiotics as above Hypertension, chronic -Resume home medication, monitor vitals Diabetes, chronic -Accu-Cheks with sliding scale insulin DVT prophylaxis: SCDs Code Status: Full code Discussed Condition With: RN and patient and family Discharge Planning: Once cleared by surgery and improved and tolerating a diet again
--- NOTE | 2018-05-11 13:01 | P.CONGS ---
[facility] Gen Surgery Consult Note Consult date: 05/11/18 Reason for consult: abdominal pain Requesting physician: Mary Evans Narrative: This is a 62 year old male with a past medical history of hypertension, diabetes mellitus and GERD who presented to the ED with complaints of severe abdominal pain. He reports he was in his usual state of health on Monday and woke up with the abdominal pain on . He reports associated nausea without vomiting. He has had pancreatitis in the past but describes this pain as worse. Her reports RUQ, epigastric and LUQ abdominal pain. He was hospitalized in [place], [place] for pancreatitis in March of 2018. His WBC is normal. His LFTs are normal. His lipase is 2786. A CT abdomen/pelvis was obtained which showed acute pancreatis and a 2.8 cm pseudocyst involving the pancreatic head. An US of the gallbladder was done which shows a thickened edematous gallbladder with pericholecystic fluid; no evidence of cholelithiasis An MRCP shows acute pancreatitis, a distended gallbladder with gallbladder wall thickening and a normal common duct. Of note, the patient has a past ETOH abuse history but does not currently consume any ETOH. A General Surgery consultation has been requested. Review of Systems All other systems reviewed negative except as stated in [facility] - History History Provided By: Patient - Medical History Medical History: Medical History (Last Reviewed 05/11/18 @ 14:02 by MICHELL Craig) Diabetes Hypertension Pancreatitis - Surgical History Surgical History: Surgical History (Last Reviewed 05/11/18 @ 14:02 by MICHELL Craig) No history of previous surgery - Family History Family History: Family History (Last Reviewed 05/11/18 @ 05:53 by MICHELL Kelley) Father HTN (hypertension) Mother HTN (hypertension) - Tobacco History Second Hand Smoke Exposure: No Tobacco Use In Past 30 Days: Yes Smoking Status: Heavy tobacco smoker Tobacco Type: Cigarettes - Alcohol History How Often Do You Have a Drink Containing Alcohol: Never - Substance Use History Substance History: No History of Abuse - Travel History Recent Travel in the [facility] Within the Last 8 Weeks: No Recent Travel Out of the Country Within the Last 8 Weeks: No - Immunization History Tetanus Immunization: Unsure Hx Influenza Vaccine This Season: No Medications and Allergies Allergies Allergy/AdvReac Type Severity Reaction Status Date / Time No Known Allergies Allergy Verified 05/10/18 15:50 Home Medications Medication Instructions Recorded Confirmed Type Novolog Flexpen U-100 Insulin 05/10/18 05/10/18 History amlodipine 10 mg PO DAILY 05/10/18 05/10/18 History cyclobenzaprine 10 mg PO DAILY 05/10/18 05/10/18 History insulin glargine [Basaglar KwikPen 20 unit SUBCUT DAILY 05/10/18 05/10/18 History U-100 Insulin] wjyyyz-nkbejrzs-tvrqtor [Creon] 1 cap PO TID 05/10/18 05/10/18 History magnesium oxide 400 mg PO DAILY 05/10/18 05/10/18 History metformin 500 mg PO BID 05/10/18 05/10/18 History multivitamin 1 tab PO DAILY 05/10/18 05/10/18 History propranolol 40 mg PO BID 05/10/18 05/10/18 History sucralfate 1 g PO BID 05/10/18 05/10/18 History vitamin B complex 1 tab PO DAILY 05/10/18 05/10/18 History Active Medications: Active Medications Amlodipine Besylate (Norvasc) 10 mg PO DAILY [facility] Cyclobenzaprine HCl (Flexeril) 10 mg PO DAILY [facility] Hydromorphone HCl (Dilaudid Pf Inj) 0.5 mg IV.PUSH Q4H PRN PRN Reason: Acute Pain Last Admin: 05/11/18 09:51 Dose: 0.5 mg Piperacillin/Tazobactam/Dextrose (Zosyn 4.5 Gm Premix) 4.5 gm in 100 mls @ 200 mls/hr IV.SIG Q6H [facility] Last Infusion: 05/11/18 12:02 Dose: Infused Sodium Chloride (Ns Inj) 1,000 mls @ 125 mls/hr IV.CONT .Q8H [facility] Last Admin: 05/11/18 05:40 Dose: 125 mls/hr Potassium Chloride (Kcl 20 Meq Premix Inj) 20 meq in 100 mls @ 50 mls/hr IV.SIG Q2H [facility] Stop: 05/11/18 18:59 Last Admin: 05/11/18 11:53 Dose: 50 mls/hr Magnesium Oxide (Mag-Ox) 400 mg PO DAILY [facility] Last Admin: 05/11/18 11:32 Dose: 400 mg Melatonin (Melatonin) 5 mg PO HS PRN PRN Reason: INSOMNIA Multivitamins (Theragran) 1 tab PO DAILY [facility] Last Admin: 05/11/18 11:32 Dose: 1 tab Non-Formulary Medication (Axjwxl-Ymzsmddi-Phcvuyt [Creon]) 1 cap PO TID [facility] Ondansetron HCl (Zofran Inj) 4 mg IV.PUSH Q6H PRN PRN Reason: NAUSEA OR VOMITING Propranolol HCl (Inderal) 40 mg PO BID [facility] Last Admin: 05/11/18 11:33 Dose: 40 mg Sodium Chloride (Ns Flush) 2 ml IV.FLUSH PRN PRN PRN Reason: FLUSH AFTER USING IV ACCESS Last Admin: 05/10/18 16:49 Dose: 2 ml Sodium Chloride (Ns Flush) 2 ml IV.FLUSH BID [facility] Last Admin: 05/11/18 11:13 Dose: Not Given Sodium Chloride (Ns Flush) 2 ml IV.FLUSH PRN PRN PRN Reason: FLUSH AFTER USING IV ACCESS Sucralfate (Carafate) 1 gm PO BID [facility] Last Admin: 05/11/18 11:32 Dose: 1 gm Vitamin B Complex/Vitamin C (Allbee C) 1 tab PO DAILY [facility] Exam Vital signs: Vital Signs 05/10/18 13:45 05/10/18 16:00 05/10/18 16:10 Temperature 97.7 F Pulse Rate 90 83 Respiratory Rate 17 Blood Pressure 135/78 Pulse Oximetry 98 98 05/10/18 16:38 05/10/18 17:19 05/10/18 17:22 Temperature Pulse Rate 97 H Respiratory Rate 18 18 Blood Pressure Pulse Oximetry 05/10/18 17:23 05/10/18 18:43 05/10/18 19:10 Temperature Pulse Rate 97 H 94 H 88 Respiratory Rate 18 16 16 Blood Pressure 161/87 H 152/80 H 134/83 Pulse Oximetry 97 97 97 05/10/18 22:31 05/10/18 23:21 05/11/18 00:00 Temperature 98.8 F 96.4 F L Pulse Rate 78 77 Respiratory Rate 16 18 18 Blood Pressure 141/83 H 128/75 Pulse Oximetry 95 95 05/11/18 04:00 05/11/18 08:00 05/11/18 12:00 Temperature 98.7 F 98.3 F 98.4 F Pulse Rate 88 84 76 Respiratory Rate 19 16 18 Blood Pressure 131/80 129/73 138/75 Pulse Oximetry 93 L 93 L 96 Intake & Output 05/10/18 05/11/18 05/11/18 18:59 06:59 18:59 Intake Total 1974 100 / 100 Output Total 550 / 550 Balance 1425 / 1425 100 / 100 Weight 56.699 kg 57.1 kg Intake: IV 1974 100 / 100 NS Inj 1,000 ML @ 125 mls/hr IV 1675 / 1675 .CONT .Q8H [facility] Rx#:[id number] Zosyn 3.375 GM Premix 3.375 gm 100 / 100 In 50 ml @ 100 mls/hr IV.SIG ONCE ONE Rx#:[id number] Zosyn 4.5 GM Premix 4.5 gm In 200 / 200 100 / 100 100 ml @ 200 mls/hr IV.SIG Q6H [facility] Rx#:[id number] Oral 0 / 0 Output: Urine 550 / 550 Other: Date of Last Bowel Movement 05/10/18 Weight On Admission 56.699 kg Narrative: GENERAL: Very pleasant 62 year old male resting in bed in no acute distress. SKIN: Warm and dry. HEAD: Atraumatic. Normocephalic. EYES: Pupils equal and round. No scleral icterus. No injection or drainage. ENT: No nasal bleeding or discharge. Mucous membranes pink and moist. NECK: Trachea midline. CARDIOVASCULAR: Regular rate and rhythm. RESPIRATORY: No accessory muscle use. Clear to auscultation. Breath sounds equal bilaterally. GASTROINTESTINAL: Abdomen soft, mildly distended. RUQ, epigastric and LUQ tenderness with palpation. No scars or hernias. MUSCULOSKELETAL: Extremities without clubbing, cyanosis, or edema. No obvious deformities. NEUROLOGICAL: Awake and alert. No obvious cranial nerve deficits. Motor grossly within normal limits. Five out of 5 muscle strength in the arms and legs. Normal speech. PSYCHIATRIC: Appropriate mood and affect; insight and judgment normal. Results - Labs 05/11/18 06:31 05/11/18 06:31 Laboratory Results - last 24 hr 05/10/18 05/10/18 05/10/18 16:35 16:35 17:10 WBC 9.8 RBC 4.49 L Hgb 11.9 L Hct 35.6 L MCV 79.4 L MCH 26.5 L MCHC 33.3 RDW 21.9 H Plt Count 365 MPV 7.3 Neut % (Auto) 71.5 H Lymph % (Auto) 23.2 [place] % (Auto) 4.6 Eos % (Auto) 0.2 Baso % (Auto) 0.5 Neut # (Auto) 7.0 Lymph # (Auto) 2.3 [place] # (Auto) 0.4 Eos # (Auto) 0.0 Baso # (Auto) 0.0 WBC Differential . Differential Comment Auto diff final Sodium 136 Potassium 5.8 H Chloride 104 Carbon Dioxide 25.3 Anion Gap 7 BUN 10 Creatinine 0.81 Estimated GFR Greater than 89 Random Glucose 173 H Calcium 9.0 Magnesium 1.8 Total Bilirubin 0.5 AST 53 H ALT 37 Alkaline Phosphatase 91 Total Protein 8.3 H Albumin 3.4 Triglycerides Cholesterol LDL Cholesterol, Calc HDL Cholesterol Cholesterol/HDL Ratio Lipase 2786 H Urine Color Yellow Urine Clarity Hazy H Urine pH 5.0 Ur Specific [place] 1.031 Urine Protein 100 H Urine Glucose (UA) Negative Urine Ketones Negative Urine Occult Blood Negative Urine Nitrate Negative Urine Bilirubin Negative Urine Urobilinogen Less than 2 Ur Leukocyte Esterase Small H Urine RBC 1 Urine WBC 37 H Ur Squamous Epith Cells 1 Urine Bacteria Few H Hyaline Casts 3 Urine Mucus Few H Micro UA Comment Culture indicated Ur Microscopic Review Not Reportable Urine Culture Comments Culture indicated 05/11/18 05/11/18 05/11/18 06:31 06:31 10:37 WBC 6.6 RBC 3.72 L Hgb 9.7 L D Hct 29.2 L MCV 78.6 L MCH 26.1 L MCHC 33.2 RDW 21.3 H Plt Count 246 D MPV 6.7 L Neut % (Auto) 69.0 Lymph % (Auto) 20.0 [place] % (Auto) 8.7 H Eos % (Auto) 1.6 Baso % (Auto) 0.7 Neut # (Auto) 4.5 Lymph # (Auto) 1.3 [place] # (Auto) 0.6 Eos # (Auto) 0.1 Baso # (Auto) 0.0 WBC Differential . Differential Comment Auto diff final Sodium 141 Potassium 3.2 L D Chloride 108 H Carbon Dioxide 23.4 Anion Gap 10 BUN 6 L Creatinine 0.57 L Estimated GFR Greater than 89 Random Glucose 111 H Calcium 8.2 L D Magnesium Total Bilirubin 0.4 AST 10 L ALT 21 Alkaline Phosphatase 76 Total Protein 6.4 D Albumin 2.6 L D Triglycerides 81 Cholesterol 125 LDL Cholesterol, Calc 45 HDL Cholesterol 63.8 H Cholesterol/HDL Ratio 1.95 Lipase 1578 H Urine Color Urine Clarity Urine pH Ur Specific [place] Urine Protein Urine Glucose (UA) Urine Ketones Urine Occult Blood Urine Nitrate Urine Bilirubin Urine Urobilinogen Ur Leukocyte Esterase Urine RBC Urine WBC Ur Squamous Epith Cells Urine Bacteria Hyaline Casts Urine Mucus Micro UA Comment Ur Microscopic Review Urine Culture Comments - Imaging Imaging: ITS Impressions Abdomen/Pelvis CT 05/10/18 16:21 CONCLUSION: 1. Findings most consistent with acute pancreatitis with secondary involvement of the gastric antrum. 2. 2.8 cm pseudocyst involving the pancreatic head is smaller from the prior study. 3. Changes involving the pancreas consistent with chronic pancreatitis. 4. Mildly distended thick walled gallbladder with a small amount of pericholecystic fluid. No calcified gallstones observed. This may simply be venous congestion secondary to the patient's underlying hepatic disease. I cannot completely exclude acute cholecystitis. If there is strong clinical concern for this consider ultrasound. Gallbladder Ultrasound 05/10/18 16:21 CONCLUSION: 1. Thickened edematous gallbladder wall with pericholecystic fluid but no evidence of cholelithiasis. This is most characteristic of acalculus cholecystitis. 2. No evidence of hepatic biliary tract disease. 3. Simple right renal cyst. Cholangiopancreatography MRI 05/11/18 00:00 CONCLUSION: 1. Findings consistent with acute pancreatitis with induration around the head of the pancreas involving pancreas and antrum. 4 cm pseudocyst is present has the pancreas. 2. Distended gallbladder with gallbladder wall thickening. No definite stones. 3. Normal common duct 4. No intrahepatic biliary duct dilatation. CT scan - abdomen: report reviewed, image reviewed US - abdomen: report reviewed, image reviewed Additional studies: MRCP Assessment and Plan - Plan 62 year old male with acute pancreatitis; acalculous cholecystitis -Lipase 1578 today; recheck tomorrow -Clear liquids -IVF -Adjusted pain medication -Plan for laparoscopic cholecystectomy on Monday if pain resolved and lipase clears -Explained procedure; answered all questions -Thank you for this consult; We will continue to follow Not clear whether gallbladder involved in this process; will obtain HIDA to determine whether patient has acalculous cholecystitis; if positive, will proceed with cholecystectomy; if negative, will simply supportive care and avoid surgery. The exam, history, and the medical decision-making described in the above note were completed with the assistance of the mid-level provider. I reviewed and agree with the findings presented. I attest that I had a [id number] encounter with the patient on the same day, and personally performed and documented my assessment and findings in the medical record. Discussed Condition With: Dr. Bryon Yu RN Mr. and Ollie Bradley and daughter at the bedside
[2018-05-11] MEDS ORDERED: Sincalide Inj 1.2 MCG in Sodium Chlor 0.9% Inj 50 ML IV.SIG ONE (20:31)
[2018-05-12] MEDS: Sod Chloride 0.9% Inj 1,000 ML IV.CONT SCH ×4 (01:01→17:56)
[2018-05-12] MEDS: Piperacil/Tazo 4.5 GM Premix 4.5 GM/100 ML BAG IV.SIG SCH ×4 (01:03→17:54)
[2018-05-12] MEDS: HYDROmorphone PF Inj 0.5 MG/0.5 ML Syringe IV.PUSH PRN ×5 (01:05→20:00)
[2018-05-12] MEDS ORDERED: Acetaminophen 325 MG Tablet PO PRN (01:29)
[2018-05-12 01:41] LABS: Baso % (Auto) 0.4 % (0.0-2.0); Eos % (Auto) 0.7 % (0.0-4.0); Hematocrit 28.5 % (39.0-51.0); Hemoglobin 9.8 gm/dL (13.0-17.0); Lymph # (Auto) 0.9 th/mm3 (1.0-4.8); Lymph % (Auto) 19.8 % (9.0-44.0); Mean Corpuscular HGB Conc 34.3 % (32.0-36.0); Mean Corpuscular Hemoglobin 26.7 pg (27.0-34.0); Mean Corpuscular Volume 77.8 fL (80.0-100.0); Mean Platelet Volume 6.5 fL (7.0-11.0); Mono # (Auto) 0.3 th/mm3 (0.0-0.9); Mono % (Auto) 6.4 % (0.0-8.0); Neut # (Auto) 3.3 th/mm3 (1.8-7.7); Neut % (Auto) 72.7 % (16.0-70.0); Platelet Count 231 th/mm3 (150-450); Red Blood Count 3.67 mil/mm3 (4.50-5.90); Red Cell Distribution Width 20.6 % (11.6-17.2); White Blood Count 4.5 th/mm3 (4.0-11.0)
[2018-05-12 01:50] LABS: INR 1.1 Ratio; Prothrombin Time 10.9 sec (9.8-11.6)
[2018-05-12 02:15] LABS: Alanine Aminotransferase 20 U/L (12-78); Albumin 2.9 g/dL (3.4-5.0); Anion Gap 10 meq/L (5-15); Aspartate Aminotransferase 14 U/L (15-37); Blood Urea Nitrogen 3 mg/dL (7-18); Calcium 8.4 mg/dL (8.5-10.1); Carbon Dioxide 24.1 meq/L (21.0-32.0); Chloride 103 meq/L (98-107); Glomerular Filtration Rate Greater Than 89 mL/min (>89); Glucose,Random 130 mg/dL (74-106); Lipase 1084 U/L (73-393); Magnesium 1.4 mg/dL (1.5-2.5); Phosphorus 1.8 mg/dL (2.5-4.9); Potassium 3.3 meq/L (3.5-5.1); Sodium 137 meq/L (136-145)
[2018-05-12 02:17] LABS: Amylase 294 U/L (25-115)
[2018-05-12 02:23] LABS: Alkaline Phosphatase 78 U/L (45-117); Free T4 (Free Thyroxine) 1.02 ng/dL (0.76-1.46); Total Protein 6.9 g/dL (6.4-8.2)
--- NOTE | 2018-05-12 05:44 | XR ---
EXAM DATE: 05/12/2018 5:37 AM EST AGE/SEX: 62 years / Male INDICATIONS: Fever. CLINICAL DATA: This is the patient's initial encounter. Patient reports that signs and symptoms have been present for 1 day and indicates a pain score of 0/10. MEDICAL/SURGICAL HISTORY: Pancreatitis. Hypertension. Diabetes mellitus type II None. COMPARISON: No prior exams available for comparison. FINDINGS: A single AP view of the chest demonstrates the lungs to be symmetrically aerated without evidence of mass, infiltrate or effusion. The cardiomediastinal contours are unremarkable. Osseous structures a re intact. CONCLUSION: No acute cardiopulmonary disease. There is no evidence of pneumonia. Electronically signed by: Russell Lynn MD Board Certified Radiologist 05/12/2018 5:43 AM EST
[2018-05-12] MEDS: Potassium Chlor 10 mEq Premix 10 MEQ/100 ML PIGGYBACK IV.SIG SCH ×2 (08:51→12:34)
[2018-05-12] MEDS: Magnesium Oxide 400 MG Tablet PO SCH (11:24)
[2018-05-12] MEDS: Sucralfate 1 GM Tablet PO SCH ×2 (11:24→20:00)
[2018-05-12] MEDS: Vitamin B Complex/Vitamin C Tablet PO SCH (11:24)
[2018-05-12] MEDS: amLODIPine 10 MG Tablet PO SCH (11:24)
[2018-05-12] MEDS: Lipase/Protease/Amylase 12/38/60 DR Capsule PO SCH ×3 (11:25→17:53)
[2018-05-12] MEDS: Propranolol 40 MG Tablet PO SCH ×2 (11:25→20:00)
--- NOTE | 2018-05-12 11:40 | NM ---
EXAM DATE: 05/12/2018 11:21 AM EST AGE/SEX: 62 years / Male INDICATIONS: Right upper quadrant pain. CLINICAL DATA: This is the patient's initial encounter. Patient reports that signs and symptoms have been present for 1 day and indicates a pain score of 2/10. MEDICAL/SURGICAL HISTORY: Diabetes mellitus type II. Hypertension. None. COMPARISON: No prior exams available for comparison. DOSE: 4.2 mCi Tc-99m mebrofenin i.v. TECHNIQUE: Following the intravenous administration of radiotracer, dynamic sequential images were pe rformed with continuous acquisition. Time-activity curves were generated. FINDINGS: Hepatic Kinetics: There is prompt uptake of radiotracer in the liver. No focal defects are seen. T here is normal rate of washout from the hepatic parenchyma. Biliary Clearance: Activity is first seen in the extrahepatic biliary system at 10 minutes. There i s normal excretion into the small bowel. Gallbladder: Activity is first seen in the gallbladder at 50 minutes. Biliary-Enteric Reflux: None observed. CONCLUSION: 1. The gallbladder is visualized and excludes cystic duct obstruction. Electronically signed by: Alia Cook MD Board Certified Radiologist 05/12/2018 11:39 AM EST
[2018-05-12 13:36] LABS: Hemoglobin A1c 6.7 % (4.3-6.0)
--- NOTE | 2018-05-12 15:16 | P.PNIM ---
Subjective Interval history: Patient is patient in bed. Still reporting some some intermittent extreme upper abdominal pain but feels that pain is generally well controlled on current medications. No nausea or vomiting; decreased appetite. No fever or chills. No chest pain or shortness of breath. Physical Exam Vital signs: Last Vital Signs Temp 99.2 F 05/12/18 12:00 Pulse 70 05/12/18 12:00 Resp 20 05/12/18 12:00 BP 151/91 H 05/12/18 12:00 Pulse Ox 95 05/12/18 12:00 Intake & Output 05/10/18 05/11/18 05/12/18 05/13/18 06:59 06:59 06:59 06:59 Intake Total 1974 / 1974 3721 / 3721 1200 / 1200 Output Total 550 / 550 1700 / 1700 Balance 1425 / 1425 2020 1200 / 1200 Weight 57.1 kg 60.4 kg Narrative: GENERAL: Well-nourished, well-developed adult male in no acute distress. SKIN: Warm and dry. HEAD: Atraumatic. Normocephalic. CARDIOVASCULAR: Regular rate and rhythm. RESPIRATORY: No accessory muscle use. Clear to auscultation. Breath sounds equal bilaterally. GASTROINTESTINAL: Abdomen soft, mildly distended. RUQ, epigastric and LUQ tenderness with palpation. MUSCULOSKELETAL: Extremities without clubbing, cyanosis, or edema. No obvious deformities. NEUROLOGICAL: Awake and alert. No obvious cranial nerve deficits. Motor grossly within normal limits. Normal speech. PSYCHIATRIC: Appropriate mood and affect; insight and judgment normal. Results Labs CBC & Chem 7: 05/12/18 01:24 05/12/18 01:24 Labs: Microbiology 05/10/18 17:10 Clean Catch Urine Urine Culture - Final 10-50,000 cfu/mL mixed gram positive carlos (probable contaminants) Imaging Imaging: Impressions Chest X-Ray 05/12/18 00:00 CONCLUSION: No acute cardiopulmonary disease. There is no evidence of pneumonia. Hepatobiliary Scan Nuclear Medicine 05/12/18 00:00 CONCLUSION: 1. The gallbladder is visualized and excludes cystic duct obstruction. Procedures Procedures: None Assessment and Plan Plan 62-year-old male with a history of pancreatitis, high blood pressure, diabetes, GERD presented to the ED with complaints of abdominal pain that started yesterday. Pancreatitis, lipase initially 2786 Patient has chronic pancreatitis with history of a chronic pseudocyst is chronically on Creon Abdominal CT shows acute pancreatitis with a 2.8 cm pseudocyst involving the pancreatic head -IVF, npo -Lipase trending down Cholecystitis Gallbladder ultrasound shows a thickened edematous gallbladder with darby- cholecystic fluid -Consult general surgery for recommendations -possible lap krissy on 05/14/17 -Pain management with IV Dilaudid -IV antibiotics Zosyn UTI -resolved Abnormal UA shows small leukocyte esterase with elevated WBC, + protein -Culture indicated; resulted in contaminants Hypertension, chronic -Resume home medication, monitor vitals Diabetes, chronic -Accu-Cheks with sliding scale insulin DVT prophylaxis: SCDs Code Status: Full code Discharge Planning: Once cleared by surgery and improved and tolerating a diet again Progress Note: Quality VTE Deep Vein Thrombosis/Pulmonary Embolism Present on Admission: No
--- NOTE | 2018-05-12 19:02 | P.PNGS ---
Subjective Patient reports: tolerating liquids well (intermittent pain, no nausea or vomiting) Physical Exam Vital signs: Vital Signs 05/11/18 20:00 05/11/18 22:01 05/12/18 00:00 Temperature 99.4 F 102.7 F H Pulse Rate 89 82 Respiratory Rate 18 18 18 Blood Pressure 151/88 H 136/79 Pulse Oximetry 95 96 05/12/18 04:00 05/12/18 08:00 05/12/18 12:00 Temperature 99.2 F 98.9 F 99.2 F Pulse Rate 81 72 70 Respiratory Rate 18 20 20 Blood Pressure 115/67 121/62 151/91 H Pulse Oximetry 95 95 95 05/12/18 17:08 Temperature 99.2 F Pulse Rate 73 Respiratory Rate 20 Blood Pressure 112/65 Pulse Oximetry 96 Intake & Output 05/11/18 05/12/18 05/12/18 18:59 06:59 18:59 Intake Total 1200 / 1200 2521 / 2521 2400 / 2400 Output Total 1700 / 1700 Balance 1200 / 1200 821 / 821 2400 / 2400 Weight 60.4 kg Intake: IV 1200 / 1200 2300 / 2300 1400 / 1400 NS Inj 1,000 ML @ 125 mls/hr IV 1000 / 1000 2000 / 2000 1000 / 1000 .CONT .Q8H DEEPIKA Rx#:[id number] Zosyn 4.5 GM Premix 4.5 gm In 100 / 100 200 / 200 200 / 200 100 ml @ 200 mls/hr IV.SIG Q6H DEEPIKA Rx#:[id number] KCl 10 mEq Premix Inj 10 meq In 200 / 200 100 ml @ 100 mls/hr IV.SIG Q1H DEEPIKA Rx#:[id number] KCl 20 mEq Premix Inj 20 meq In 100 / 100 100 / 100 100 ml @ 50 mls/hr IV.SIG Q2H DEEPIKA Rx#:[id number] Oral 221 / 221 1000 / 1000 Output: Urine 1700 / 1700 Other: # Voids 0 2 Date of Last Bowel Movement 05/10/18 05/10/18 05/10/18 # Bowel Movements 1 - Routine Abdominal Exam Present: soft (mild ttp) Results - Labs 05/12/18 01:24 05/12/18 01:24 Laboratory Results - last 24 hr 05/12/18 05/12/18 05/12/18 01:24 01:24 01:24 WBC 4.5 RBC 3.67 L Hgb 9.8 L Hct 28.5 L MCV 77.8 L MCH 26.7 L MCHC 34.3 RDW 20.6 H Plt Count 231 MPV 6.5 L Neut % (Auto) 72.7 H Lymph % (Auto) 19.8 [place] % (Auto) 6.4 Eos % (Auto) 0.7 Baso % (Auto) 0.4 Neut # (Auto) 3.3 Lymph # (Auto) 0.9 L [place] # (Auto) 0.3 Eos # (Auto) 0.0 Baso # (Auto) 0.0 WBC Differential . Differential Comment Auto diff final PT 10.9 INR 1.1 Sodium Potassium Chloride Carbon Dioxide Anion Gap BUN Creatinine Estimated GFR Random Glucose Hemoglobin A1c 6.7 H Calcium Phosphorus Magnesium Total Bilirubin AST ALT Alkaline Phosphatase Total Protein Albumin Amylase Lipase TSH Free T4 05/12/18 01:24 WBC RBC Hgb Hct MCV MCH MCHC RDW Plt Count MPV Neut % (Auto) Lymph % (Auto) [place] % (Auto) Eos % (Auto) Baso % (Auto) Neut # (Auto) Lymph # (Auto) [place] # (Auto) Eos # (Auto) Baso # (Auto) WBC Differential Differential Comment PT INR Sodium 137 Potassium 3.3 L Chloride 103 Carbon Dioxide 24.1 Anion Gap 10 BUN 3 L Creatinine 0.55 L Estimated GFR Greater than 89 Random Glucose 130 H Hemoglobin A1c Calcium 8.4 L Phosphorus 1.8 L Magnesium 1.4 L Total Bilirubin 0.5 AST 14 L ALT 20 Alkaline Phosphatase 78 Total Protein 6.9 Albumin 2.9 L Amylase 294 H Lipase 1084 H TSH 1.350 Free T4 1.02 - Imaging Imaging: ITS Impressions Abdomen/Pelvis CT 05/10/18 16:21 CONCLUSION: 1. Findings most consistent with acute pancreatitis with secondary involvement of the gastric antrum. 2. 2.8 cm pseudocyst involving the pancreatic head is smaller from the prior study. 3. Changes involving the pancreas consistent with chronic pancreatitis. 4. Mildly distended thick walled gallbladder with a small amount of pericholecystic fluid. No calcified gallstones observed. This may simply be venous congestion secondary to the patient's underlying hepatic disease. I cannot completely exclude acute cholecystitis. If there is strong clinical concern for this consider ultrasound. Gallbladder Ultrasound 05/10/18 16:21 CONCLUSION: 1. Thickened edematous gallbladder wall with pericholecystic fluid but no evidence of cholelithiasis. This is most characteristic of acalculus cholecystitis. 2. No evidence of hepatic biliary tract disease. 3. Simple right renal cyst. Cholangiopancreatography MRI 05/11/18 00:00 CONCLUSION: 1. Findings consistent with acute pancreatitis with induration around the head of the pancreas involving pancreas and antrum. 4 cm pseudocyst is present has the pancreas. 2. Distended gallbladder with gallbladder wall thickening. No definite stones. 3. Normal common duct 4. No intrahepatic biliary duct dilatation. Chest X-Ray 05/12/18 00:00 CONCLUSION: No acute cardiopulmonary disease. There is no evidence of pneumonia. Hepatobiliary Scan Nuclear Medicine 05/12/18 00:00 CONCLUSION: 1. The gallbladder is visualized and excludes cystic duct obstruction. Assessment and Plan - Plan 62 year old male with acute pancreatitis; acalculous cholecystitis, HIDA negative no evidence of acute cholecysititis, unlikely gb etiology -Lipase elevated but trending down recheck tomorrow, continue tx for acute pancreatitis -Clear liquids -IVF - pain control - will follow
[2018-05-13] MEDS: HYDROmorphone PF Inj 0.5 MG/0.5 ML Syringe IV.PUSH PRN ×6 (00:12→23:01)
[2018-05-13] MEDS: Piperacil/Tazo 4.5 GM Premix 4.5 GM/100 ML BAG IV.SIG SCH ×5 (00:13→23:03)
[2018-05-13] MEDS: Sod Chloride 0.9% Inj 1,000 ML IV.CONT SCH ×2 (00:16→08:41)
[2018-05-13] MEDS: Melatonin 5 MG Tablet PO PRN ×2 (00:17→23:03)
[2018-05-13 08:22] LABS: Anion Gap 9 meq/L (5-15); Blood Urea Nitrogen 1 mg/dL (7-18); Calcium 7.6 mg/dL (8.5-10.1); Carbon Dioxide 26.5 meq/L (21.0-32.0); Chloride 102 meq/L (98-107); Glomerular Filtration Rate Greater Than 89 mL/min (>89); Glucose,Random 154 mg/dL (74-106); Sodium 137 meq/L (136-145)
[2018-05-13 08:36] LABS: Potassium 2.7 meq/L (3.5-5.1)
[2018-05-13] MEDS: Propranolol 40 MG Tablet PO SCH ×2 (08:40→21:07)
[2018-05-13] MEDS ORDERED: Mag Sulf 1 gm/100 ml Premix 100 ML IV.SIG ONE (08:40)
[2018-05-13] MEDS: Lipase/Protease/Amylase 12/38/60 DR Capsule PO SCH ×3 (08:40→17:59)
[2018-05-13] MEDS: Sucralfate 1 GM Tablet PO SCH ×2 (08:40→21:07)
[2018-05-13] MEDS: Vitamin B Complex/Vitamin C Tablet PO SCH (08:40)
[2018-05-13] MEDS: amLODIPine 10 MG Tablet PO SCH (08:40)
[2018-05-13] MEDS: Magnesium Oxide 400 MG Tablet PO SCH (08:40)
--- NOTE | 2018-05-13 11:01 | P.PNGS ---
Subjective Patient reports: feels better (Patient indicates he still has some mild abdominal discomfort but is significantly improved. He has had no nausea or vomiting.) Physical Exam Vital signs: Vital Signs 05/12/18 12:00 05/12/18 17:08 05/12/18 20:00 Temperature 99.2 F 99.2 F 100.2 F H Pulse Rate 70 73 72 Respiratory Rate 20 20 20 Blood Pressure 151/91 H 112/65 118/72 Pulse Oximetry 95 96 97 05/13/18 00:00 05/13/18 04:00 05/13/18 08:02 Temperature 99.0 F 99.6 F 99.4 F Pulse Rate 78 72 64 Respiratory Rate 20 18 20 Blood Pressure 149/85 H 138/80 139/73 Pulse Oximetry 95 95 96 05/13/18 09:32 Temperature Pulse Rate Respiratory Rate Blood Pressure Pulse Oximetry 96 Intake & Output 05/12/18 05/13/18 05/13/18 18:59 06:59 18:59 Intake Total 2400 / 2400 1310 / 1310 1020 / 1020 Output Total 1200 / 1200 Balance 2400 / 2400 110 / 110 1020 / 1020 Weight 60.2 kg Intake: IV 1400 / 1400 1200 / 1200 1020 / 1020 NS Inj 1,000 ML @ 125 mls/hr IV 1000 / 1000 1000 / 1000 1020 / 1020 .CONT .Q8H DEEPIKA Rx#:[id number] Zosyn 4.5 GM Premix 4.5 gm In 200 / 200 200 / 200 100 ml @ 200 mls/hr IV.SIG Q6H DEEPIKA Rx#:[id number] KCl 10 mEq Premix Inj 10 meq In 200 / 200 100 ml @ 100 mls/hr IV.SIG Q1H DEEPIKA Rx#:[id number] Oral 1000 / 1000 110 / 110 Output: Urine 1200 / 1200 Other: # Voids 2 2 Date of Last Bowel Movement 05/10/18 05/12/18 05/12/18 # Bowel Movements 1 1 Narrative: His abdomen is soft, nondistended, nontender to palpation. There is no rebound or guarding. Results - Labs 05/12/18 01:24 05/13/18 06:28 Laboratory Results - last 24 hr 05/12/18 05/13/18 01:24 06:28 Sodium 137 Potassium 2.7 L* Chloride 102 Carbon Dioxide 26.5 Anion Gap 9 BUN 1 L Creatinine 0.56 L Estimated GFR Greater than 89 Random Glucose 154 H Hemoglobin A1c 6.7 H Calcium 7.6 L D - Imaging Imaging: ITS Impressions Abdomen/Pelvis CT 05/10/18 16:21 CONCLUSION: 1. Findings most consistent with acute pancreatitis with secondary involvement of the gastric antrum. 2. 2.8 cm pseudocyst involving the pancreatic head is smaller from the prior study. 3. Changes involving the pancreas consistent with chronic pancreatitis. 4. Mildly distended thick walled gallbladder with a small amount of pericholecystic fluid. No calcified gallstones observed. This may simply be venous congestion secondary to the patient's underlying hepatic disease. I cannot completely exclude acute cholecystitis. If there is strong clinical concern for this consider ultrasound. Gallbladder Ultrasound 05/10/18 16:21 CONCLUSION: 1. Thickened edematous gallbladder wall with pericholecystic fluid but no evidence of cholelithiasis. This is most characteristic of acalculus cholecystitis. 2. No evidence of hepatic biliary tract disease. 3. Simple right renal cyst. Cholangiopancreatography MRI 05/11/18 00:00 CONCLUSION: 1. Findings consistent with acute pancreatitis with induration around the head of the pancreas involving pancreas and antrum. 4 cm pseudocyst is present has the pancreas. 2. Distended gallbladder with gallbladder wall thickening. No definite stones. 3. Normal common duct 4. No intrahepatic biliary duct dilatation. Chest X-Ray 05/12/18 00:00 CONCLUSION: No acute cardiopulmonary disease. There is no evidence of pneumonia. Hepatobiliary Scan Nuclear Medicine 05/12/18 00:00 CONCLUSION: 1. The gallbladder is visualized and excludes cystic duct obstruction. Assessment and Plan - Assessment (1) Acute pancreatitis Code(s): K85.90 - Acute pancreatitis without necrosis or infection, unspecified Status: Acute - Plan Patient has resolving clinical acute pancreatitis. Etiology is uncertain. Evaluation of the gallbladder is not demonstrated gallstones. HIDA scan demonstrates a patent cystic duct which is suggestive of the gallbladder not being the reason for his pancreatitis. It also suggests that cholecystitis is not the primary diagnosis and in fact gallbladder wall thickening and pericholecystic fluid may be just directly related to the pancreatitis. At this time the patient is clinically improved. There is no indication at this time for pursuing cholecystectomy. I discussed this with the patient. Dr. Slater will be made aware and can see the patient tomorrow and sign off if indicated. (1) Acute pancreatitis Qualifiers: Pancreatitis type: idiopathic Acute pancreatitis complication: no infection or necrosis Qualified Code(s): K85.00 - Idiopathic acute pancreatitis without necrosis or infection
[2018-05-13] MEDS: Potassium Chlor 10 mEq Premix 10 MEQ/100 ML PIGGYBACK IV.SIG SCH ×5 (11:52→16:36)
[2018-05-13] MEDS: Potassium Chloride Inj 10 MEQ in Sod Chloride 0.9% Inj 1,000 ML IV.CONT SCH ×2 (12:47→18:43)
--- NOTE | 2018-05-13 14:59 | P.PNIM ---
Subjective Interval history: Patient is seen lying in bed. Tolerating clear liquids without any nausea or vomiting. Reports that abdominal tenderness has significantly improved. No fever or chills. Physical Exam Vital signs: Last Vital Signs Temp 99.4 F 05/13/18 08:02 Pulse 64 05/13/18 08:02 Resp 20 05/13/18 08:02 BP 139/73 05/13/18 08:02 Pulse Ox 96 05/13/18 09:32 Intake & Output 05/11/18 05/12/18 05/13/18 05/14/18 06:59 06:59 06:59 06:59 Intake Total 1974 / 1974 3721 / 3721 3710 / 3710 1320 / 1320 Output Total 550 / 550 1700 / 1700 1200 / 1200 Balance 1425 / 1425 2020 2510 / 2510 1320 / 1320 Weight 57.1 kg 60.4 kg 60.2 kg Narrative: GENERAL: Well-nourished, well-developed adult male in no acute distress. SKIN: Warm and dry. HEAD: Atraumatic. Normocephalic. CARDIOVASCULAR: Regular rate and rhythm. RESPIRATORY: No accessory muscle use. Clear to auscultation. Breath sounds equal bilaterally. GASTROINTESTINAL: Abdomen soft, non- distended. Slight RUG tenderness with palpation; no guarding. MUSCULOSKELETAL: Extremities without clubbing, cyanosis, or edema. No obvious deformities. NEUROLOGICAL: Awake and alert. No obvious cranial nerve deficits. Motor grossly within normal limits. Normal speech. PSYCHIATRIC: Appropriate mood and affect; insight and judgment normal. Results Labs CBC & Chem 7: 05/12/18 01:24 05/13/18 06:28 Labs: Microbiology 05/12/18 01:29 Blood - Peripheral Aerobic Blood Culture - Preliminary No growth in 1 day 05/12/18 01:29 Blood - Peripheral Anaerobic Blood Culture - Preliminary No growth in 1 day 05/12/18 01:24 Blood - Peripheral Aerobic Blood Culture - Preliminary No growth in 1 day 05/12/18 01:24 Blood - Peripheral Anaerobic Blood Culture - Preliminary No growth in 1 day 05/10/18 17:10 Clean Catch Urine Urine Culture - Final 10-50,000 cfu/mL mixed gram positive carlos (probable contaminants) Procedures Procedures: None Assessment and Plan (1) Acute pancreatitis: Code(s): K85.90 - Acute pancreatitis without necrosis or infection, unspecified Status: Acute Plan 62-year-old male with a history of pancreatitis, high blood pressure, diabetes, GERD presented to the ED with complaints of abdominal pain that started yesterday. Pancreatitis, lipase initially 2786 Patient has chronic pancreatitis with history of a chronic pseudocyst is chronically on Creon Abdominal CT shows acute pancreatitis with a 2.8 cm pseudocyst involving the pancreatic head -Diet progressed to clear liquids -Lipase trending down Cholecystitis Gallbladder ultrasound shows a thickened edematous gallbladder with darby- cholecystic fluid -Consult general surgery for recommendations -initially planned lap krissy however HIDA scan was negative. Pending reevaluation tomorrow morning -Pain management with IV Dilaudid -IV antibiotics Zosyn UTI -resolved Abnormal UA shows small leukocyte esterase with elevated WBC, + protein -Culture indicated; resulted in contaminants Hypertension, chronic -Resume home medication, monitor vitals Diabetes, chronic -Accu-Cheks with sliding scale insulin DVT prophylaxis: SCDs Code Status: Full code Discharge Planning: Once cleared by surgery and improved and tolerating a diet again Progress Note: Quality VTE Deep Vein Thrombosis/Pulmonary Embolism Present on Admission: No _ (1) Acute pancreatitis Qualifiers: Acute pancreatitis complication: no infection or necrosis Pancreatitis type: idiopathic Qualified Code(s): K85.00 - Idiopathic acute pancreatitis without necrosis or infection
[2018-05-14] MEDS: HYDROmorphone PF Inj 0.5 MG/0.5 ML Syringe IV.PUSH PRN ×4 (02:57→17:59)
[2018-05-14] MEDS: Piperacil/Tazo 4.5 GM Premix 4.5 GM/100 ML BAG IV.SIG SCH ×3 (04:55→16:13)
[2018-05-14] MEDS: Potassium Chloride Inj 10 MEQ in Sod Chloride 0.9% Inj 1,000 ML IV.CONT SCH ×2 (04:55→17:17)
[2018-05-14 07:58] LABS: Anion Gap 6 meq/L (5-15); Blood Urea Nitrogen 2 mg/dL (7-18); Calcium 7.5 mg/dL (8.5-10.1); Chloride 102 meq/L (98-107); Glomerular Filtration Rate Greater Than 89 mL/min (>89); Glucose,Random 268 mg/dL (74-106); Lipase 324 U/L (73-393); Magnesium 1.6 mg/dL (1.5-2.5); Sodium 136 meq/L (136-145)
[2018-05-14 08:16] VITALS: RESP 20
[2018-05-14] MEDS: amLODIPine 10 MG Tablet PO SCH (08:27)
[2018-05-14] MEDS: Sucralfate 1 GM Tablet PO SCH (08:27)
[2018-05-14] MEDS: Magnesium Oxide 400 MG Tablet PO SCH (08:27)
[2018-05-14] MEDS: Propranolol 40 MG Tablet PO SCH (08:27)
[2018-05-14] MEDS: Vitamin B Complex/Vitamin C Tablet PO SCH (08:27)
[2018-05-14] MEDS: Lipase/Protease/Amylase 12/38/60 DR Capsule PO SCH ×3 (08:28→17:13)
[2018-05-14] MEDS ORDERED: Mag Sulf 1 gm/100 ml Premix 100 ML IV.SIG ONE (08:30)
[2018-05-14] MEDS: Potassium Chlor 10 mEq Premix 10 MEQ/100 ML PIGGYBACK IV.SIG SCH ×4 (09:43→14:00)
[2018-05-14] MEDS: Insulin NovoLOG Aspart Correctional Sugar Inj SQ SCH ×2 (12:49→17:15)
[2018-05-14 16:23] VITALS: BP 119/75; PULSE 68; TEMP 99.6; O2SAT 98
--- NOTE | 2018-05-14 17:25 | P.PNIM ---
Subjective Interval history: Patient seen lying in bed. Reports that he is feeling much better. He has been tolerating advances in his diet without any nausea or vomiting. No fever or chills. Looking forward to being discharged. Physical Exam Vital signs: Last Vital Signs Temp 99.6 F 05/14/18 15:30 Pulse 68 05/14/18 15:30 Resp 20 05/14/18 15:30 BP 119/75 05/14/18 15:30 Pulse Ox 98 05/14/18 15:30 Intake & Output 05/12/18 05/13/18 05/14/18 05/15/18 06:59 06:59 06:59 06:59 Intake Total 3721 / 3721 3710 / 3710 5488 / 5488 900 / 900 Output Total 1700 / 1700 1200 / 1200 3050 / 3050 1700 / 1700 Balance 2020 / 2020 2510 / 2510 2438 / 2438 -800 / -800 Weight 60.4 kg 60.2 kg 60.2 kg Narrative: GENERAL: Well-nourished, well-developed adult male in no acute distress. SKIN: Warm and dry. HEAD: Atraumatic. Normocephalic. CARDIOVASCULAR: Regular rate and rhythm. RESPIRATORY: No accessory muscle use. Clear to auscultation. Breath sounds equal bilaterally. GASTROINTESTINAL: Abdomen soft, non- distended. Slight RUG tenderness with palpation; no guarding. MUSCULOSKELETAL: Extremities without clubbing, cyanosis, or edema. No obvious deformities. NEUROLOGICAL: Awake and alert. No obvious cranial nerve deficits. Motor grossly within normal limits. Normal speech. PSYCHIATRIC: Appropriate mood and affect; insight and judgment normal. Results Labs CBC & Chem 7: 05/12/18 01:24 05/14/18 06:59 Labs: Microbiology 05/12/18 01:29 Blood - Peripheral Aerobic Blood Culture - Preliminary No growth in 2 days 05/12/18 01:29 Blood - Peripheral Anaerobic Blood Culture - Preliminary No growth in 2 days 05/12/18 01:24 Blood - Peripheral Aerobic Blood Culture - Preliminary No growth in 2 days 05/12/18 01:24 Blood - Peripheral Anaerobic Blood Culture - Preliminary No growth in 2 days Procedures Procedures: None Assessment and Plan (1) Acute pancreatitis: Code(s): K85.90 - Acute pancreatitis without necrosis or infection, unspecified Status: Acute Plan 62-year-old male with a history of pancreatitis, high blood pressure, diabetes, GERD presented to the ED with complaints of abdominal pain that started yesterday. Pancreatitis, lipase initially 2786-resolved Patient has chronic pancreatitis with history of a chronic pseudocyst is chronically on Creon Abdominal CT shows acute pancreatitis with a 2.8 cm pseudocyst involving the pancreatic head -Diet progressed to regular -tolerating well -Lipase now normal Cholecystitis-resolving Gallbladder ultrasound shows a thickened edematous gallbladder with darby- cholecystic fluid -Consult general surgery for recommendations -initially planned lap krissy however HIDA scan was negative. Surgery no longer indicated; recommending outpatient follow-up. Patient tells us he has an appointment with his regular GI doctor May 26 in [place]. -Pain management with IV Dilaudid -IV antibiotics Zosyn; will stop at discharge. No indication for p.o. antibiotics. UTI -resolved Abnormal UA shows small leukocyte esterase with elevated WBC, + protein -Culture indicated; resulted in contaminants Hypokalemia -Monitor and replete as indicated Hypertension, chronic, stable -Resume home medication, monitor vitals Diabetes, chronic -Accu-Cheks with sliding scale insulin DVT prophylaxis: SCDs Code Status: Full code Discharge Planning: Patient has been cleared by surgery. Will discharged once potassium has normalized Progress Note: Quality VTE Deep Vein Thrombosis/Pulmonary Embolism Present on Admission: No _ (1) Acute pancreatitis Qualifiers: Acute pancreatitis complication: no infection or necrosis Pancreatitis type: idiopathic Qualified Code(s): K85.00 - Idiopathic acute pancreatitis without necrosis or infection
--- NOTE | 2018-05-14 17:31 | P.DS ---
DS: Providers Date of admission: 05/10/18 19:16 Primary care physician: No Primary Care Physician Consults: 05/10/18 23:04 Consult to General Surgery Routine Consulting Provider: Russell Slater Reason for Consultation: acute cholecystitis, possible cholelithiasis Notified:: Service Spoke with:: anai Date Notified:: 05/10/18 Time Notified:: 23:25 Ordering Provider: ILAN Brief History from admission: 62-year-old male with a history of pancreatitis, high blood pressure, diabetes, GERD presented to the ED with complaints of abdominal pain that started yesterday. Patient states he felt very bloated and over the course of the day the pain became worse and radiated to his right upper quadrant. He states the pain originally was a 7/10, constant, sharp stabbing, worse with movement, with associated nausea and bloating. Upon examination patient states his abdominal pain is significantly better with the medications and fluids. He denies any chest pain, shortness of breath, fever or chills. DS: Diagnosis Discharge Diagnosis (1) Acute pancreatitis: Status: Acute DS: Summary 62-year-old male with a history of pancreatitis, high blood pressure, diabetes, GERD presented to the ED with complaints of abdominal pain that started 1 day prior. Pancreatitis, lipase initially [id number] ; resolved Patient has chronic pancreatitis with history of a chronic pseudocyst is chronically on Creon Abdominal CT shows acute pancreatitis with a 2.8 cm pseudocyst involving the pancreatic head -Diet progressed to regular without difficulty -Lipase returned to normal Cholecystitis; significantly improved Gallbladder ultrasound shows a thickened edematous gallbladder with darby- cholecystic fluid -Consult general surgery for recommendations -initially planned lap krissy however HIDA scan was negative. Surgery is no longer indicated and outpatient follow-up is recommended. 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 -IV antibiotics = Zosyn. Outpatient antibiotics not indicated. UTI -resolved Abnormal UA shows small leukocyte esterase with elevated WBC, + protein -Culture indicated; resulted in contaminants Chronic conditions of hypertension and diabetes were stable while hospitalized Time Spent with Patient Total time spent providing and/or coordinating discharge services: < 30 min Quality: VTE Deep Vein Thrombosis/Pulmonary Embolism Present on Admission: No Exam Narrative Exam Narrative: GENERAL: Well-nourished, well-developed adult male in no acute distress. SKIN: Warm and dry. HEAD: Atraumatic. Normocephalic. CARDIOVASCULAR: Regular rate and rhythm. RESPIRATORY: No accessory muscle use. Clear to auscultation. Breath sounds equal bilaterally. GASTROINTESTINAL: Abdomen soft, non- distended. Slight RUG tenderness with palpation; no guarding. MUSCULOSKELETAL: Extremities without clubbing, cyanosis, or edema. No obvious deformities. NEUROLOGICAL: Awake and alert. No obvious cranial nerve deficits. Motor grossly within normal limits. Normal speech. PSYCHIATRIC: Appropriate mood and affect; insight and judgment normal. Results Procedures completed during hospitalization: None Labs on day of discharge: Labs from last 24 hours 05/14/18 05/14/18 05/14/18 16:53 16:18 12:18 Sodium Potassium Pending Chloride Carbon Dioxide Anion Gap BUN Creatinine Estimated GFR POC Glucose 194 H 277 H Random Glucose Calcium Magnesium Lipase 05/14/18 06:59 Sodium 136 Potassium 3.0 L Chloride 102 Carbon Dioxide 28.0 Anion Gap 6 BUN 2 L Creatinine 0.64 Estimated GFR Greater than 89 POC Glucose Random Glucose 268 H D Calcium 7.5 L Magnesium 1.6 Lipase 324 Preliminary micro results at discharge 05/12/18 01:29 Aerobic Blood Culture - Preliminary Blood - Peripheral No growth in 2 days Anaerobic Blood Culture - Preliminary No growth in 2 days 05/12/18 01:24 Aerobic Blood Culture - Preliminary Blood - Peripheral No growth in 2 days Anaerobic Blood Culture - Preliminary No growth in 2 days Impressions ITS Impressions Abdomen/Pelvis CT 05/10/18 16:21 CONCLUSION: 1. Findings most consistent with acute pancreatitis with secondary involvement of the gastric antrum. 2. 2.8 cm pseudocyst involving the pancreatic head is smaller from the prior study. 3. Changes involving the pancreas consistent with chronic pancreatitis. 4. Mildly distended thick walled gallbladder with a small amount of pericholecystic fluid. No calcified gallstones observed. This may simply be venous congestion secondary to the patient's underlying hepatic disease. I cannot completely exclude acute cholecystitis. If there is strong clinical concern for this consider ultrasound. Gallbladder Ultrasound 05/10/18 16:21 CONCLUSION: 1. Thickened edematous gallbladder wall with pericholecystic fluid but no evidence of cholelithiasis. This is most characteristic of acalculus cholecystitis. 2. No evidence of hepatic biliary tract disease. 3. Simple right renal cyst. Cholangiopancreatography MRI 05/11/18 00:00 CONCLUSION: 1. Findings consistent with acute pancreatitis with induration around the head of the pancreas involving pancreas and antrum. 4 cm pseudocyst is present has the pancreas. 2. Distended gallbladder with gallbladder wall thickening. No definite stones. 3. Normal common duct 4. No intrahepatic biliary duct dilatation. Chest X-Ray 05/12/18 00:00 CONCLUSION: No acute cardiopulmonary disease. There is no evidence of pneumonia. Hepatobiliary Scan Nuclear Medicine 05/12/18 00:00 CONCLUSION: 1. The gallbladder is visualized and excludes cystic duct obstruction. Discharge Plan Discharge Disposition Patient Disposition: Discharge Home Discharge Condition Condition: Stable Discharge Order Discharge Orders: Discharge Order (Routine); Ordered 05/14/18 Ordered By: Parisa Caraballo Discharge Details Discharge Comment: September discharge once potassium is normal and patient is tolerating regular diet. Physicians Team Primary Care Provider: Primary Care Anjelica Centeno Attending Provider: Shirley Rivas Other Providers: Russell Slater Rxs /Orders / Referrals /Forms Prescriptions: Continue cyclobenzaprine 10 mg Tablet 10 mg PO DAILY RF: 0 metformin 500 mg Tablet 500 mg PO BID RF: 0 sucralfate 1 gram Tablet 1 g PO BID RF: 0 propranolol 40 mg Tablet 40 mg PO BID RF: 0 amlodipine 10 mg Tablet 10 mg PO DAILY RF: 0 insulin glargine [Basaglar KwikPen U-100 Insulin] 100 unit/mL (3 mL) Insulin Pen 20 unit SUBCUT DAILY RF: 0 [id number] [Creon] 36,000-114,000- 180,000 unit Capsule,Delayed Release(Dr/Ec) 1 cap PO TID RF: 0 Novolog Flexpen U-100 Insulin RF: 0 multivitamin Tablet 1 tab PO DAILY RF: 0 vitamin B complex Tablet 1 tab PO DAILY RF: 0 magnesium oxide 400 mg magnesium Tablet 400 mg PO DAILY RF: 0 Referrals: Field Logistics Coordinator [Outside] - See Instructions Discharge Instructions Patient Printed Instructions: Cholecystitis (ED) Discharge Interventions Interventions: Discharge Planning - Case Management Last Done: 05/11/18 15:00 Status ED Status: Left Department
== END 2018-05-14 19:07 | disposition home or self-care (01) | DRG 439 ==
LOC: NEPD 13:31 → NEDA 19:16 → H7ONC 22:50 → N05 05-11 16:15
PROVIDERS: ADMIT Family Medicine; ATTEND Family Medicine
CPT/HCPCS: 71010; 71045; 74177; 74183; 76377; 76705; 78226; 80048; 80053; 80061; 81001; 82150; 82948; 82962; 83036; 83690; 83735; 84100; 84132; 84439; 84443; 85025; 85610; 87040; 87086; 90765; 90775; 90776; 96365; 96375; 96376; 97162; 99285; A9513; A9537; A9585; C1097; C9113; J1170; J1815; J2270; J2405; J2543; J3475; J3480; J7030; Q9967